=== PATIENT | female | born 1990 | race Caucasian/White ===

== ENCOUNTER 2022-03-13 05:55 | Inpatient (IN) | payer BC ==
[~2022-03-13 05:55] MED LIST: Albuterol 0.083% 2.5 MG/3 ML Neb Soln NEB PRN; HYDROmorphone 1 MG/ML Syringe IVPUSH PRN; Metoclopramide 10 MG/2 ML SDV IVPUSH PRN; Morphine 2 MG/ML SYRINGE IVPUSH PRN; Naloxone 0.4 MG/ML SDV IVPUSH PRN; Ondansetron 4 MG/2 ML SDV IVPUSH PRN; Phenylephrine HCl In 0.9% NaCl 1 MG/10 ML Vial IVPUSH SCH; ePHEDrine 50 MG/ML SDV IVPUSH PRN; fentaNYL 50 MCG/ML SDV IVPUSH PRN
[2022-03-13] MEDS ORDERED: Ondansetron 4 MG/2 ML SDV ONE (07:29)
[2022-03-13] MEDS ORDERED: Phenylephrine HCl In 0.9% NaCl 1 MG/10 ML Vial ONE (07:29)
[2022-03-13] MEDS ORDERED: Ketorolac 30 MG/ML SDV ONE (07:29)
[2022-03-13] MEDS ORDERED: Lidocaine 2% 5 ML SDV ONE (07:29)
[2022-03-13] MEDS ORDERED: Oxytocin 10 Units/1 ML SDV ONE (07:29)
[2022-03-13] MEDS ORDERED: ceFAZolin 2 GM Vial ONE (07:29)
[2022-03-13] MEDS ORDERED: Dexamethasone 4 MG/ML 5 ML MDV ONE (07:29)
[2022-03-13] MEDS ORDERED: Phenylephrine 1% 10 MG/ML SDV ONE (07:29)
[2022-03-13] MEDS ORDERED: Morphine PF 10 MG/10 ML SDV ONE (07:30)
[2022-03-13] MEDS ORDERED: fentaNYL 100 MCG/2 ML SDV ONE (07:31)
[2022-03-13] MEDS ORDERED: Citric Acid/Sodium Citrate Solution 30 ML Cup PO ONE (07:39)
[2022-03-13] MEDS ORDERED: Sodium Chloride 0.9% 2.5 ML Syringe FLUSH PRN (07:39)
[2022-03-13] MEDS ORDERED: ceFAZolin 2 GM in Premix Bag 1 BAG IV ONE (07:39)
[2022-03-13] MEDS ORDERED: Sodium Chloride 0.9% 20 ML SDV IV PRN (07:39)
[2022-03-13] MEDS ORDERED: Sodium Chloride 0.9% 10 ML Syringe FLUSH PRN (07:39)
[2022-03-13] MEDS ORDERED: Citric Acid/Sodium Citrate Solution 30 ML Cup ONE (07:43)
[2022-03-13] MEDS ORDERED: Oxytocin/0.9 % Sodium Chloride 30 UNIT/500 ML BAG IV SCH ×2 (07:45→09:00)
[2022-03-13] MEDS ORDERED: Lactated Ringers 1,000 ML IV SCH ×2 (07:45→09:00)
[2022-03-13] MEDS ORDERED: Ropivacaine 0.5% 5 MG/ML 30 ML SDV ONE ×2 (08:45→08:46)
[2022-03-13] MEDS ORDERED: Ondansetron 4 MG/2 ML SDV IVPUSH PRN (08:53)
[2022-03-13] MEDS ORDERED: Lanolin 100% Cream 7 GM Tube TOP PRN (08:53)
[2022-03-13] MEDS ORDERED: Bisacodyl 10 MG Supp RECTAL PRN (08:53)
[2022-03-13] MEDS ORDERED: diphenhydrAMINE 50 MG/ML SDV IVPUSH PRN (08:53)
[2022-03-13] MEDS ORDERED: Tranexamic Acid 1,000 MG in Sodium Chloride 0.9% 100 ML IV PRN (08:53)
[2022-03-13] MEDS ORDERED: Oxytocin 10 Units/1 ML SDV IM PRN (08:53)
[2022-03-13] MEDS ORDERED: Misoprostol 200 MCG Tab RECTAL PRN (08:53)
[2022-03-13] MEDS ORDERED: Methylergonovine 0.2 MG/1 ML Amp IM PRN (08:53)
[2022-03-13] MEDS: Ketorolac 30 MG/ML SDV IVPUSH SCH ×2 (14:30→20:14)
[2022-03-13] MEDS: Prenatal Multivitamin with Calcium/Folic Acid/Iron Tab PO SCH (20:14)
[2022-03-13] MEDS: Docusate Sodium 100 MG Cap PO SCH (20:14)
[2022-03-14] MEDS: Ketorolac 30 MG/ML SDV IVPUSH SCH ×2 (01:49→07:53)
[2022-03-14] MEDS: Prenatal Multivitamin with Calcium/Folic Acid/Iron Tab PO SCH (09:29)
[2022-03-14] MEDS: Docusate Sodium 100 MG Cap PO SCH ×3 (09:30→21:07)
[2022-03-14] MEDS: Ibuprofen 800 MG Tab PO PRN (15:24)
[2022-03-14] MEDS: Acetaminophen/oxyCODONE 325-5 MG Tab PO PRN ×2 (18:44→21:08)
[2022-03-15] MEDS: Ibuprofen 800 MG Tab PO PRN (01:00)
[2022-03-15] MEDS: Acetaminophen/oxyCODONE 325-5 MG Tab PO PRN ×3 (01:01→09:09)
[2022-03-15] MEDS: Prenatal Multivitamin with Calcium/Folic Acid/Iron Tab PO SCH (09:09)
[2022-03-15] MEDS: Docusate Sodium 100 MG Cap PO SCH (09:09)
== END 2022-03-15 10:44 | disposition home or self-care (01) | DRG 540 ==
LOC: MW.OB 05:55
PROVIDERS: ADMIT Obstetrics & Gynecology; ATTEND Obstetrics & Gynecology
PROC: 10D00Z1 Extraction of Products of Conception, Low, Open Approach (ICD-10-PCS; principal; 2022-03-13)
DX: O32.1XX0 Maternal care for breech presentation, not applicable or unspecified (principal); Z3A.39 39 weeks gestation of pregnancy; Z37.0 Single live birth; O43.123 Velamentous insertion of umbilical cord, third trimester
CPT/HCPCS: 36415; 59025; 82803; 85014; 85018; 86850; 86900; 86901; A9270-GY; J0131; J0690; J1100; J1790; J1885; J2274; J2370; J2405; J2590; J2795; J3010

== ENCOUNTER 2024-03-22 06:37 | Emergency (ER) | payer BC ==
[2024-03-22] MEDS ORDERED: Naloxone 0.4 MG/ML SDV IVPUSH PRN (06:45)
[2024-03-22] MEDS: HYDROmorphone 1 MG/ML Syringe IM ONE (06:52)
== END 2024-03-22 07:25 | disposition home or self-care (01) ==
LOC: MW.ED 06:37
DX: S92.512A Displaced fracture of proximal phalanx of left lesser toe(s), initial encounter for closed fracture (principal); Z86.16 Personal history of COVID-19; Z91.030 Bee allergy status; W22.8XXA Striking against or struck by other objects, initial encounter
CPT/HCPCS: 73660; 96372; 99283; J1171